=== PATIENT | female | born 1955 | race Caucasian/White ===

== ENCOUNTER → 2016-09-22 | Outpatient (CLI) | payer BC ==
[2016-09-22 10:35] LABS: BLOOD UREA NITROGEN 15 mg/dl (7-18); BUN/CREATININE RATIO 22.4 (10-20); CALCIUM 9.5 mg/dl (8.5-10.1); CARBON DIOXIDE 29 mmol/L (21-32); CHLORIDE 104 mmol/L (98-107); CHOLESTEROL 310 mg/dl (0-200); CREATININE 0.67 mg/dl (0.60-1.20); GLUCOSE 99 mg/dl (70-99); POTASSIUM 3.8 mmol/L (3.5-5.1); SODIUM 142 mmol/L (136-145)
[2016-09-22 10:54] LABS: CHOLESTEROL/HDL RATIO 4.6; HDL CHOLESTEROL 68 mg/dl; LDL CHOLESTEROL CALCULATED 195 mg/dl; THYROID STIMULATING HORMONE 0.047 uIu/ml (0.300-4.500); TRIGLYCERIDES 234 mg/dl (0-150); VERY LOW DENSITY LIPOPROT CALC 47 mg/dl
== END | disposition home or self-care (01) ==
LOC: C.LAB 09:11
PROVIDERS: ATTEND Internal Medicine Geriatric Medicine
DX: E03.9 Hypothyroidism, unspecified (principal); E78.5 Hyperlipidemia, unspecified; E55.9 Vitamin D deficiency, unspecified

== ENCOUNTER → 2017-01-10 | Outpatient (CLI) | payer BC ==
--- NOTE | 2017-01-11 13:20 | MAMMOGRAPHY REPORT ---
BILATERAL DIGITAL SCREENING MAMMOGRAM 3D/2D WITH CAD: 01/10/2017 CLINICAL HISTORY: Routine screening. Patient has no complaints. TECHNIQUE: Bilateral breast tomosynthesis in addition to standard 2D mammography was performed. Curre nt study was also evaluated with a Computer Aided Detection (CAD) system. COMPARISON: Comparison is made to exams dated: 01/07/2016 mammogram, 12/10/2014 mammogram, 09/24/2013 m ammogram, 06/30/2012 mammogram, 06/25/2011 mammogram, and 06/10/2010 mammogram - [facility] enter. BREAST COMPOSITION: There are scattered areas of fibroglandular density in both breasts. FINDINGS: There is a possible grouping of microcalcifications in the anterior superior right breast, only definitely seen on the MLO view, for which additional spot magnification views are recommended. A 6 mm focal asymmetry in the lower inner middle one third of the left breast could represent a cys t, although additional spot compression tomosynthesis views and possibly ultrasound are recommended. No other suspicious mass, architectural distortion or cluster of microcalcifications is seen bilatera lly. ACR BI-RADS CATEGORY 0: INCOMPLETE EVALUATION: NEED ADDITIONAL IMAGING EVALUATION The possible grouped microcalcifications in the anterior superior right breast, and 6 mm focal asymme try in the lower inner left breast need additional imaging evaluation. The patient will be called to schedule an appointment. Approximately 10% of breast cancers are not detected with mammography. A negative mammographic report should not delay biopsy if a clinically suggestive mass is present. Rosa Araiza M.D. ay/:01/10/2017 15:42:59 Technical Adjuster: Donna MURRAY(Sindy)(M), [facility] letter sent: Addl Imaging 0 BI-RADS Code: ACR BI-RADS Category 0: Incomplete Evaluation: Need Additional Imaging Evaluation
== END | disposition home or self-care (01) ==
LOC: C.MAMM 10:55
PROVIDERS: ATTEND Internal Medicine Geriatric Medicine
DX: Z12.31 Encounter for screening mammogram for malignant neoplasm of breast (principal)

== ENCOUNTER → 2017-01-24 | Outpatient (CLI) | payer BC ==
--- NOTE | 2017-01-24 15:52 | MAMMOGRAPHY REPORT ---
BILATERAL DIGITAL DIAGNOSTIC MAMMOGRAM TOMOSYNTHESIS AND TARGETED LEFT ULTRASOUND: 01/24/2017 CLINICAL HISTORY: 61-year-old woman called back from screening mammography for right breast microcalc ifications and left breast focal asymmetry versus mass. Family history of breast cancer = aunt. TECHNIQUE: Spot magnification right CC and ML, spot compression 2-D and tomosynthesis left CC and ML O views were obtained. COMPARISON: Comparison is made to exams dated: 01/07/2016 mammogram, 12/10/2014 mammogram, 09/24/2013 m ammogram, 06/30/2012 mammogram, 06/25/2011 mammogram, and 06/10/2010 mammogram - [facility] enter. BREAST COMPOSITION: There are scattered areas of fibroglandular density in both breasts. FINDINGS: There is a loose grouping of approximately 5-6 microcalcifications in the anterior right b reast, best seen on the spot magnification ML view. A few of the microcalcifications may demonstrate layering, suggesting benign milk of calcium, particularly given that the microcalcifications are les s conspicuous on the spot magnification CC view. No obvious associated mass or architectural distort ion. A six-month follow-up right diagnostic mammogram including spot magnification views is recommen ded to ensure stability in 6 months. Spot compression tomosynthesis views of the left breast demonstrate persistence of a lobulated, parti ally circumscribed 6.7 x 5.3 x 2.9 mm mass in the approximate 9:00 middle one third of the left breas t. No associated architectural distortion or microcalcifications. Further evaluation with ultrasoun d was performed. Targeted ultrasound was performed in the 9:00 axis of the left breast. There is a parallel predomina ntly anechoic cystic appearing mass with internal nonvascular septations measuring 8.6 x 2.4 x 4.5 mm . This most likely represents a complicated cyst, but a short interval follow-up targeted left breas t ultrasound and tomosynthesis mammogram is recommended to ensure stability in 6 months. IMPRESSION: ACR-BI-RADS CATEGORY 3: PROBABLY BENIGN, TARGETED ULTRASOUND ACR-BI-RADS CATEGORY 3: PRO BABLY BENIGN 1. The loosely grouped partially layering microcalcifications in the anterior right breast most like ly represent fibrocystic changes and milk of calcium. However, a short interval follow-up right diag nostic mammogram including spot magnification views is recommended to ensure stability in 6 months. 2. The lobulated 6.7 mm mass in the 9:00 left breast is thought to correlate with a complicated cyst on ultrasound. However given the complicated nature, a short interval follow-up left diagnostic jonathan osynthesis mammogram and repeat targeted ultrasound is recommended to ensure stability in 6 months. These results and recommendations were discussed with the patient at the time of the exam. Approximately 10% of breast cancers are not detected with mammography. A negative mammographic report should not delay biopsy if a clinically suggestive mass is present. Rosa Araiza M.D. ay/:01/24/2017 09:38:52 Personal Financial Advisor: Snehal MURRAY(Sindy)(M), [facility] letter sent: Follow Up Recommended 3 BI-RADS Code: ACR-BI-RADS Category 3: Probably Benign Ultrasound BI-RADS: ACR-BI-RADS Category 3: Pr obably Benign
== END | disposition home or self-care (01) ==
LOC: C.MAMM 08:34
PROVIDERS: ATTEND Internal Medicine Geriatric Medicine
DX: R92.0 Mammographic microcalcification found on diagnostic imaging of breast (principal); N63 Unspecified lump in breast

== ENCOUNTER → 2017-07-25 | Outpatient (CLI) | payer OTHER, BC ==
--- NOTE | 2017-07-25 15:19 | MAMMOGRAPHY REPORT ---
BILATERAL DIGITAL DIAGNOSTIC MAMMOGRAM TOMOSYNTHESIS WITH CAD AND TARGETED BILATERAL ULTRASOUND: 07/25 CLINICAL HISTORY: 61-year-old woman presents for follow-up in both breasts, for a small grouping of m icrocalcifications in the lateral anterior right breast and a probable complicated cyst in the 9:00 l eft breast. TECHNIQUE: Bilateral breast tomosynthesis in addition to standard 2D mammography was performed. Spot magnification right CC and ML views were also obtained. current study was also evaluated with a [employer] Aided Detection (CAD) system. COMPARISON: Comparison is made to exams dated: 01/24/2017 mammogram, 01/24/2017 ultrasound, 01/10/2017 mammogram, 01/07/2016 mammogram, 12/10/2014 mammogram, and 09/24/2013 mammogram - [facility]. BREAST COMPOSITION: The tissue of both breasts is heterogeneously dense, which may obscure small mas ses. FINDINGS: There is a lobulated and circumscribed 7.8 x 4.6 x 3.0 mm mass in the 9:00 middle one third of the left breast. Given slight differences in positioning this has not significantly changed comp aring to the prior mammograms dated 01/10/2017 and thought to correlate with a complicated cyst on ult rasound. A partially circumscribed mass in the superior posterior left breast on the MLO view appear s stable on prior mammograms dating back to at least 09/24/2013, therefore considered benign. No susp icious masses, asymmetries, areas of architectural distortion or calcifications are identified in the left breast. There is a stable loose grouping of punctate microcalcifications in the lateral anterior right breast . The right spot magnification views demonstrate approximately 5 round and punctate microcalcificati ons in the 9:00 anterior right breast. No definitive layering is appreciated on the current spot mag nification views. However these microcalcifications are not increased in number or different in dist ribution comparing to the prior spot magnification views and most likely represent benign fibrocystic change. Another six-month follow-up diagnostic mammogram including spot magnification views is leonora mmended to ensure longer stability. The right CC view demonstrates a low density partially circumscr ibed lobulated 5.6 mm mass in the far posterior breast along the posterior nipple line, thought to pr oject inferiorly based on the MLO view and tomosynthesis localizer bar. Further characterization wit h ultrasound was performed. No new suspicious masses, calcifications, areas of architectural distort ion or asymmetries identified in the right breast. Targeted ultrasound was performed in both breasts with particular attention to the 6:00 right breast and 9:00 left breast. In the right breast 5:00 to 6:00 periareolar region, there is a probable compl icated cyst measuring 6.9 x 3.2 x 6.8 mm. This correlates with the mammographic finding and is proba adin benign. The appearance is similar to the cyst previously seen in the left breast at 9:00. In th e left 9:00 breast, there is a lobulated predominantly anechoic cyst measuring 6.1 x 4.3 x 3.6 mm. T his has not significantly changed in size but has less internal debris and/or septations comparing to the prior ultrasound. Another six-month follow-up is recommended to ensure longer stability. IMPRESSION: ACR-BI-RADS CATEGORY 3: PROBABLY BENIGN, TARGETED ULTRASOUND ACR-BI-RADS CATEGORY 3: PRO BABLY BENIGN 1. Stable mammographic appearance of the left breast including a lobulated, 7.8 mm mass in the 9:00 axis, which also correlates with a mildly complicated cyst on ultrasound. Another six-month follow-u p left diagnostic tomosynthesis mammogram and targeted ultrasound is recommended to ensure longer sta bility. 2. Stable mammographic appearance of a loose grouping of punctate microcalcifications in the 9:00 an terior right breast. Another six-month follow-up right diagnostic mammogram is also recommended to e nsure longer stability of the calcifications. 3. A 5.6 mm low-density lobulated mass in the 6:00 posterior right breast mammographically is though t to correspond to a complicated cyst on ultrasound and a repeat targeted ultrasound in the 5:00 to 6 :00 periareolar right breast is also recommended at time of six-month follow-up. These results and recommendations were discussed with the patient at the time of the exam. She tenta tively scheduled a follow-up appointment prior to leaving the department. Approximately 10% of breast cancers are not detected with mammography. A negative mammographic report should not delay biopsy if a clinically suggestive mass is present. Rosa Araiza M.D. ay/:07/25/2017 10:44:07 Catering Sales Manager: Sudha MURRAY(Sindy)(M), [facility] letter sent: Follow Up Recommended 3 BI-RADS Code: ACR-BI-RADS Category 3: Probably Benign Ultrasound BI-RADS: ACR-BI-RADS Category 3: Pr obably Benign
== END ==
LOC: C.MAMM 08:42
PROVIDERS: ATTEND Internal Medicine Geriatric Medicine
DX: R92.0 Mammographic microcalcification found on diagnostic imaging of breast (principal)